=== PATIENT | female | born 1975 | race Two or more races ===

== ENCOUNTER 2019-04-08 10:10 | Emergency (ER) | payer SELFPAY ==
[~2019-04-08] VITALS: Ht 167.6 cm; Wt 97.5 kg
[2019-04-08 10:15] VITALS: BP 145/58
[2019-04-08 11:00] LABS: Urine Bacteria NONE SEEN /hpf (None Seen); Urine Blood 2+ /uL (Negative); Urine Mucus FEW (None Seen); Urine WBC 16 /hpf (0 - 5)
[2019-04-08] MEDS ORDERED: KETOROLAC TROMETH 60MG/2ML VIAL IM ONE (12:00)
[2019-04-08] MEDS ORDERED: cefTRIAXone SOD 1,000 MG VL IM ONE (12:00)
== END 2019-04-08 13:03 | disposition home or self-care (01) ==
LOC: ER 10:10
DX: N39.0 Urinary tract infection, site not specified (principal)
CPT/HCPCS: 74176; 81001; 96372; 99284; J0696; J1885

== ENCOUNTER 2023-06-18 18:52 | Emergency (ER) | payer BC ==
[~2023-06-18] VITALS: Ht 167.6 cm; Wt 98.2 kg
[2023-06-18] MEDS ORDERED: IBUPROFEN 600 MG TAB PO ONE (19:45)
[2023-06-19 00:27] VITALS: BP 131/80; PULSE 63; RESP 17; TEMP 97.9; O2SAT 100
[2023-06-19] MEDS ORDERED: KETOROLAC TROMETH 30 MG/ML 1ML VIAL IM ONE (01:15)
== END 2023-06-19 01:31 | disposition home or self-care (01) ==
LOC: ER 18:52
DX: S52.125A Nondisplaced fracture of head of left radius, initial encounter for closed fracture (principal); Z87.442 Personal history of urinary calculi; W19.XXXA Unspecified fall, initial encounter; Y93.89 Activity, other specified; Y92.89 Other specified places as the place of occurrence of the external cause; Y99.8 Other external cause status
CPT/HCPCS: 29125; 73060; 73090; 96372; 99284; J1885

== ENCOUNTER 2024-12-09 10:16 | Emergency (ER) | payer BC ==
[~2024-12-09] VITALS: Ht 167.6 cm; Wt 97.0 kg
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
--- NOTE | 2024-12-09 11:38 | DVH ---
EXAM: XY L SHOULDER 2+ VIEW XRAY CLINICAL INDICATION: trauma TECHNIQUE: XY L SHOULDER 2+ VIEW XRAY Comparison: None FINDINGS/IMPRESSION: There is no evidence of acute fracture or dislocation. The visualized joint space is well maintained. The alignment is anatomical. There is no radiopaque foreign body.
--- NOTE | 2024-12-09 11:38 | DVH ---
INDICATION: trauma COMPARISON: None TECHNIQUE: 3 views of the cervical spine were obtained. FINDINGS: The cervical vertebral alignment is normal. The predental space is normal. The intervertebral disc spaces are well-maintained. No significant facet arthropathy is noted. No acute fracture, vertebral compression deformity or aggressive osseous lesions. The imaged lung apices are unremarkable. IMPRESSION: No acute fracture.
[2024-12-09] MEDS: KETOROLAC TROMETH 60MG/2ML VIAL IM ONE (11:48)
[2024-12-09 11:50] VITALS: BP 134/66; TEMP 98.3
[2024-12-09 12:43] VITALS: PULSE 71; RESP 20; O2SAT 92
[2024-12-09] MEDS ORDERED: HYDR-4902 PO (12:55)
== END 2024-12-09 12:58 | disposition home or self-care (01) ==
LOC: ER 10:16
DX: S16.1XXA Strain of muscle, fascia and tendon at neck level, initial encounter (principal); S76.012A Strain of muscle, fascia and tendon of left hip, initial encounter; S46.912A Strain of unspecified muscle, fascia and tendon at shoulder and upper arm level, left arm, initial encounter; Z90.710 Acquired absence of both cervix and uterus; V89.2XXA Person injured in unspecified motor-vehicle accident, traffic, initial encounter; Y93.89 Activity, other specified; Y92.410 Unspecified street and highway as the place of occurrence of the external cause; Y99.8 Other external cause status
CPT/HCPCS: 72040; 73030; 73070; 73100; 73560; 96372; 99284; J1885